=== PATIENT | male | born 1945 | race Caucasian/White ===

== ENCOUNTER 2017-03-16 08:09 | Emergency (ER) | payer MEDICARE, OTHER ==
[~2017-03-16] VITALS: Ht 172.7 cm; Wt 90.7 kg
[~2017-03-16 08:09] MED LIST: ACHD5005 PO; AMLO5TAB2 PO; ASPI-892 PO; ATOR20TA66 PO; CYCL10TA9 PO; ESOM20CA PO; METO50TA2 PO; NAPR-243 PO; NF-ESOM40C PO
--- OUTSIDE RECORDS SUMMARY | 2017-03-16 08:14 | XMS REPORT | Continuity of Care Document ---
Author Author [employer] Organization [facility] Address Unknown Phone Unavailable Care Team Providers Care Director Of Corporate Sales Name Role Phone [employer] Unavailable Unavailable Problems Medications Allergies, Adverse Reactions, Alerts Immunizations Results Vital Signs Encounters Location Location Details Encounter Type Encounter Number Reason For Visit Attending Provider ADM Date DC Date Status Source OUTPATIENT [id number] PRAKASH WILLINGHAM 07/04/2016 07/04/2016 Active [facility] OUTPATIENT [id number] PRAKASH WILLINGHAM 01/23/2017 01/23/2017 Active [facility] OUTPATIENT [id number] PRAKASH WILLINGHAM 02/26/2017 02/26/2017 Active [facility] O Active [facility] Procedures Plan of Care Social History Assessment and Plan Family History Value Date Source Advance Directives Order Name Results Value Date Source
--- OUTSIDE RECORDS SUMMARY | 2017-03-16 08:15 | XMS REPORT | Clinical Summary ---
Author Author [facility] Organization [facility] Address Unknown Phone Unavailable Care Team Providers Care Backend Tester Name Role Phone PCP Unavailable Source Comments Some departments are not documenting in the electronic medical record. If you do not see the information that you expected, contact Release of Information in the Health Information Management department at [phone] for further assistance in locating additional records.[facility] Allergies Active Allergy Reactions Severity Noted Date Comments Sulfa (Sulfonamide SHORTNESS OF BREATH Medium 11/04/2014 Antibiotics) Current Medications Prescription Sig. Disp. Refills Start End Date Status Date atorvastatin (LIPITOR) 20 Take 20 mg by mouth Active mg tablet daily. aspirin EC 81 mg tablet Take 81 mg by mouth. Take Active every other day esomeprazole DR(+) Take 20 mg by mouth as Active (NEXIUM) 20 mg capsule Needed. apixaban (ELIQUIS) 5 mg Take 1 Tab by mouth twice 60 Tab 11 07/21/19 Active tablet daily. If AF episode 17 lasting a few hours, take Eliquis and call our office lisinopril (PRINIVIL; Take 1.5 Tabs by mouth 135 Tab 3 10/13/19 Active ZESTRIL) 20 mg daily. 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 SVT (supraventricular tachycardia) (HCC) 10/14/2014 Overview: 10/03/2014 - 48 hr Holter showed occ PVC's and episodes of T inversion Palpitations 10/14/2014 Overview: Associated with chest discomfort r/t SVT - treated successfully with adenosine in ER S/P cardiac catheterization 10/13/2014 Overview: 50% mid LAD stenosis, LVEF 60% Hypokalemia 10/05/2014 Bradycardia 10/05/2014 Hypertension 11/04/2012 Encounters Date Type Specialty Care Team Description 03/15/2017 Telephone Cardiology Rocio Rodriguez, RN 03/07/2017 Telephone Cardiology Gretta Jason, CELIA Follow-up Phone Call (ILR events) 03/05/2017 Telephone Cardiology Zena Persaud Remote Monitoring Questions (LM for pt to send a remote transmission from [employer] monitor to see stored information.) 02/26/2017 Hospital Cardiology Bronson Snow MD Encounter 02/15/2017 Telephone Cardiology Gisella Espinal, Remote Monitoring RN Questions (pause and pablo alerts on ILR ) 02/01/2017 Telephone Cardiology Gisella Espinal, Remote Monitoring RN Questions (ILR events, request full transmission) 01/26/2017 Telephone Cardiology Gisella Espinal, Remote Monitoring RN Questions (pablo and pause alerts on ILR) 01/23/2017 Hospital Cardiology Bronson Snow MD Encounter 12/21/2016 Hospital Cardiology Bronson Snow MD Encounter from Last 3 Months Family History Medical History Relation Name Comments Hypertension Father Coronary Artery Disease Mother Hypertension Mother Relation Name Status Comments Father old age (Age 96) Mother heart disease (Age 94) Social History Tobacco Use Types Packs/Day Years Used Date Never Smoker Smokeless Tobacco: Never Used Alcohol Use Drinks/Week oz/Week Comments Yes Wine Occasionally Sex Assigned at Date Recorded Not on file Last Filed Vital Signs Vital Sign Reading Time Taken Blood Pressure 140/70 10/12/2016 11:13 AM CDT Pulse 54 10/12/2016 11:13 AM CDT Temperature 36.6 C (97.8 F) 11/25/2014 9:13 AM CDT Respiratory Rate - - Oxygen Saturation 97% 11/25/2014 9:13 AM CDT Inhaled Oxygen - - Concentration Weight 92.5 kg (204 lb) 10/12/2016 11:13 AM CDT Height 175.3 cm (5' 9") 10/12/2016 11:13 AM CDT Body Mass Index 30.13 10/12/2016 11:13 AM CDT Plan of Treatment Health Maintenance Due Date Last Done Comments HEPATITIS C SCREENING 1945 PHYSICAL (COMPREHENSIVE) 1952 EXAM PERTUSSIS VACCINE 1956 TETANUS VACCINE 1962 COLORECTAL CANCER 1995 SCREENING SHINGLES VACCINE 2005 PREVNAR/PNEUMOVAX (#1) 2010 INFLUENZA VACCINE 03/18/2017 Results * DEVICE EVALUATION - REMOTE ILR (01/26/2017 11:43 AM) Only the most recent of 2 results within the time period is included. Component Value Ref Range Device Implanted By Dr. Snow Generator Model # LNQ11 Generator Serial # [id number] Generator Implnat Date 03/22/16 Remote Monitor Serial# [id number] WENDY/EOL Indicator per transmitter Generator Net Lead Architect Medtronic Wireless Generator Yes Device Type ILR Device [place] Carelink Express Transmitter Compatible Permanent Comments r-waves 0.32-0.34 mV on date of implant EP Device Followed by Dr. Snow Name ILR Symptom Duration 4 7.5 mins each ILR Tachy Rate 158 ILR Tachy Duration 16 ILR Pause Duration 3 ILR Pablo Rate 30 ILR Pablo Duration 4 ILR AT Events Since Last n/a Interrogation ILR AT Lifetime Events as n/a of EP Device Followed By MAC ILR AF Rate AF only ILR AF Duration all episodes Known Diagnosed AFib Yes On Anticoagulation Yes Generator Location Left ILR Current Monitoring 01/23/2014 to 02/22/2017 Period ILR Date of Last Daily 02/11/17 Connection ILR Battery Status Ok ILR Symptom Events Since 0 Last Interrogation ILR Symptom Lifetime 17 Events as of ILR Tachy Events Since 1 Last Interrogation ILR Tachy Lifetime Events 2 as of ILR Pause Events Since 21 Last Interrogation ILR Pause Lifetime Events 69 as of ILR Pablo Events Since 61 Last Interrogation ILR Pablo Lifetime Events 503 as of ILR AF Events Since Last 0 Interrogation ILR AF Lifetime Events as 1 of ILR Percent Time in AT/AF 0.0% Events Since Last Interrogation ILR Percent Time in AT/AF 0.0% Lifetime of Events as of ILR Presenting ECG Strip 02/11/17 @ 0004 ILR Lifetime Events as of 02/11/17 Datetion Specimen Performing Laboratory OTHER OUTSIDE LAB Narrative [02/15/2017 10:07:19 AM - SHERRY ZEALYA] Event report received and reviewed, 2 new pause and 14 new pablo events # 591- Pablo- 02/10/17- SB 30's with ectopy # 589- Pablo- 02/09/17 @ 2348- SB 30's-40's with ectopy # 584- Pablo- 02/06/17 @ 0134- SB 30's-40's # 582- Pause- 02/05/17 @ 2333- SB 30's with 3 sec pause > SB 30's > 2.8 second pause > SB 30's # 574- 580- Pablo- 01/30/17-02/02/17- [phone]- longest episode 12 seconds- all events show SB 30's-40's Strips scanned for further review, will continue to monitor. Routed to Dr. Reid in EP lab for review/cosign. Ep nurse flagged for f/u if needed [01/31/2017 4:35:00 PM - GISELLA REDMAN]Reviewed Event Report. Report indicates one pause event and 13 pablo events occurred.Only two pablo events rec'd # 573 Pablo 01/30 @ 04:01 lasting 8 sec with Median and max V rate 31 bpm. Available 30 sec ECG shows SB rate 30's with 4 beats lower than 30 mid strip # 571 Pablo 01/27 @ 04:40 lasting 8 sec with median and max V rate 33 bpm. Shows similar to above.Strips scanned for review and signature. Mr. Bryant will need to send a remote transmission to see stored information. Routed to Dr. Corrales in EP lab for Dr. Snow for review and signature. [01/26/2017 11:47:10 AM - ZENA PERSAUD] Reviewed Summary Report, Full Report and Event Report. #558 Pause 01/21 @ 07:23 lasting 3 sec with a median V rate at 40 bpm shows SB between 33-38 bpm > 3.1 sec pause >one SB beat at <30 bpm > SB between 30-32 bpm. #[phone] Pablo 01/18-4 lasting between 8-9 sec with a min V rate between 30-31 bpm and median V rate between 30-36 bpm shows SB in the <30's-40's. #554 Pause 01/18 @ 20:14 lasting 3 sec with a median V rate at 37 bpm shows SB between 30-44 bpm > 3.4 sec pause > 3.1 sec pause > 3.6 sec pause > SB between <30-37 bpm. #551-553 Pablo 8/-8 lasting between 8-16 sec with a min V rate between <30-33 bpm and median V rate between 37-38 bpm shows SB in the <30's-40's. #543-550 Pause 01/14-8 lasting between 3-4 sec shows SB in the <30's-50's with true pauses. #550 - 3.4 sec pause #549 - 3.1 sec pause #548 - 3.9 sec pause #547 - 3.2 sec pause #546 - 3.4 sec pause #545 - 3.1 sec pause #544 - 4.2 sec pause #543 - 3.4 sec pause #542 Pablo 01/14 @ 20:42 lasting 11 sec with a min V rate at 11 bpm and median V rate at 38 bpm shows SB at <30's-40's. #541 Pause 01/14 @ 20:29 lasting 3 sec with a median V rate at 41 bpm shows SB <30's-40's with a 3.3 sec pause. #540 Tachy 01/14 @ 02:48 lasting 13 sec with a median/max V rate at 171 bpm shows SR in the 70's-80's with AT between 150's-180's > SR in the 60's-70's. #539 Pablo 01/13 @ 18:59 lasting 9 sec with a min V rate at 33 bpm and median V rate at 36 bpm shows SB between <30's-40's. #536-538 Pause 01/13 lasting 3 sec with a median V rate between 39-45 bpm shows SB between <30's-40's with true pauses. #538 - 3.3 sec pause #537 - 3.3 sec pause #536 - 3.1 sec pause #535 Pablo 01/12 @ 21:13 lasting 9 sec with a min/median V rate at <30 bpm shows SB <30's-40's. #534 Pause 01/12 @ 18:15 lasting 3 sec with a median V rate at 38 bpm shows SB <30's-40's with a 3.2 sec pause > SB between 30's-40's with a PAC. #510 and #[phone] Pablo 12/29-01/11 shows TEXT ONLY #[phone] Pause 12/31 shows TEXT ONLY Strips were scanned to review and I will route to Dr. Snow for review and co-sign. EP nurse was flagged to review and f/u. from Last 3 Months
--- OUTSIDE RECORDS SUMMARY | 2017-03-16 08:15 | XMS REPORT | Encounter Summary ---
Author Author [facility] Organization [facility] Address Unknown Phone Unavailable Care Team Providers Care Technology Professional Name Role Phone PCP Unavailable Encounter Details Date Type Department Care Team Description 01/23/2017 [facility] Cardiology Bronson Snow MD Encounter Remote Device Check [address] [facility] [phone] [address] [place] [address] [phone] Social History Tobacco Use Types Packs/Day Years Used Date Never Smoker Smokeless Tobacco: Never Used Alcohol Use Drinks/Week oz/Week Comments Yes Wine Occasionally Sex Assigned at Date Recorded Not on file as of this encounter Functional Status Functional Status Response Date of Assessment Does the patient have a hearing impairment: No 11/24/2014 as of this encounter Medications at Time of Discharge Medication Sig. Disp. Refills Start Date End Date apixaban (ELIQUIS) 5 mg Take 1 Tab by mouth twice 60 Tab 11 2016 tablet daily. If AF episode lasting a few hours, take Eliquis and call our office aspirin EC 81 mg tablet Take 81 mg by mouth. Take every other day atorvastatin (LIPITOR) 20 Take 20 mg by mouth mg tablet daily. esomeprazole DR(+) Take 20 mg by mouth as (NEXIUM) 20 mg capsule Needed. lisinopril (PRINIVIL; Take 1.5 Tabs by mouth 135 Tab 3 10/12/2016 ZESTRIL) 20 mg daily. tabletIndications: SVT (supraventricular tachycardia) (HCC), AVNRT (AV deyvi re-entry tachycardia) (HCC), Cardiac device in situ as of this encounter Plan of Treatment Not on fileas of this encounter Results * DEVICE EVALUATION - REMOTE ILR (01/26/2017 11:43 AM) Component Value Ref Range Device Implanted By Dr. Snow Generator Model # LNQ11 Generator Serial # [id number] Generator Implnat Date 03/22/16 Remote Monitor Serial# [id number] WENDY/EOL Indicator per transmitter Generator Telesales Consultant Medtronic Wireless Generator Yes Device Type ILR Device [place] [employer] Express Transmitter Compatible Permanent Comments r-waves [...] LAB Narrative [02/15/2017 10:07:19 AM - SHERRY ZELAYA] Event report received and reviewed, 2 new [...] SB 30's # 574- 580- Pablo- 01/30/17-02/02/17- [phone]- longest episode 12 seconds- all events show [...] review and signature. [01/26/2017 11:47:10 AM - ROSALINA PERSAUD] Reviewed Summary Report, Full Report and Event Report. #558 Pause 01/21 @ 07:23 lasting 3 sec with a median V rate at 40 bpm shows SB between 33-38 bpm > 3.1 sec pause >one SB beat at <30 bpm > SB between 30-32 bpm. #[phone] Pablo 01/18-01/19 lasting between 8-9 sec with a min [...] > SB between <30-37 bpm. #551-553 Pablo 01/17-01/18 lasting between 8-16 sec with a min V rate between <30-33 bpm and median V rate between 37-38 bpm shows SB in the <30's-40's. #543-550 Pause 01/14-01/17 lasting between 3-4 sec shows SB in [...] nurse was flagged to review and f/u. in this encounter Visit Diagnoses Diagnosis SVT (supraventricular tachycardia) (HCC) Other specified cardiac dysrhythmias Atrial flutter, unspecified type AVNRT (AV deyvi re-entry tachycardia) (HCC) Other specified cardiac dysrhythmias in this encounter
--- OUTSIDE RECORDS SUMMARY | 2017-03-16 08:15 | XMS REPORT | Encounter Summary ---
Author Author [facility] Organization [facility] Address Unknown Phone Unavailable Care Team Providers Care Range Aid Name Role Phone PCP Unavailable Encounter Details Date Type Department Care Team Description 03/15/2017 Telephone [facility] Cardiology Rocio Rodriguez, RN [address] [place] [address] Social History Tobacco Use Types Packs/Day Years Used Date Never Smoker Smokeless Tobacco: Never Used Alcohol Use Drinks/Week oz/Week Comments Yes Wine Occasionally Sex Assigned at Date Recorded Not on file as of this encounter Functional Status Functional Status Response Date of Assessment Does the patient have a hearing impairment: No 11/24/2014 as of this encounter Miscellaneous Notes * Telephone Encounter - Rocio Rodriguez RN - 03/15/2017 3:33 PM CDT rhythm strips review, all noted to be during sleep. will send to Dr Snow for review. Mr Bryant has hx of similar events in past all documented while sleeping. 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 #630 and #635 Pause 03/09 and 03/12 shows SB in the 30's with 3.2 and 3.4 sec pause. #626 Pause 03/08 @ 22:43 lasting 3 sec with a median V rate at 35 bpm shows SA with ectopy > 3.5 sec pause > SB <30's-41 bpm. Strips were scanned to review and f/u if needed. in this encounter Plan of Treatment Not on fileas of this encounter Visit Diagnoses Not on filein this encounter
--- OUTSIDE RECORDS SUMMARY | 2017-03-16 08:15 | XMS REPORT | Encounter Summary ---
Author Author [facility] Organization [facility] Address Unknown Phone Unavailable Care Team Providers Care Sales Associate Fishing Name Role Phone PCP Unavailable Encounter Details Date Type Department Care Team Description 02/26/2017 [facility] Cardiology Bronson Snow MD Encounter Remote Device Check [address] [facility] [phone] [address] [place] [address] [phone] Social History Tobacco Use Types Packs/Day Years [...] as of this encounter Plan of Treatment Name Priority Associated Diagnoses Date/Time DEVICE EVALUATION - REMOTE ILR Routine SVT (supraventricular 02/28/2017 2:26 PM CDT tachycardia) (HCC) Atrial flutter, unspecified type AVNRT (AV deyvi re-entry tachycardia) (HCC) as of this encounter Visit Diagnoses Diagnosis SVT (supraventricular tachycardia) (HCC) Other specified cardiac dysrhythmias Atrial flutter, unspecified type AVNRT (AV deyvi re-entry tachycardia) (HCC) Other specified cardiac dysrhythmias in this encounter
--- OUTSIDE RECORDS SUMMARY | 2017-03-16 08:15 | XMS REPORT | Encounter Summary ---
Author Author [facility] Organization [facility] Address Unknown Phone Unavailable Care Team Providers Care Social Media Content Specialist Name Role Phone PCP Unavailable Reason for Visit * Reason Comments Follow-up Phone Call ILR events Encounter Details Date Type Department Care Team Description 03/07/2017 Telephone [facility] Cardiology Gretta Jason RN Follow- up Phone Call (ILR [address] [place] events) [address] [place], [place] [id number] Social History Tobacco Use Types Packs/Day Years Used Date Never Smoker Smokeless Tobacco: Never Used Alcohol Use Drinks/Week oz/Week Comments Yes Wine Occasionally Sex Assigned at Date Recorded Not on file as of this encounter Functional Status Functional Status Response Date of Assessment Does the patient have a hearing impairment: No 11/24/2014 as of this encounter Miscellaneous Notes * Telephone Encounter - Gretta Jason RN - 03/07/2017 11:21 AM CDT Called patient to discuss events. Left VM to CB. 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 #617 Pablo 03/04 @ 23:30 lasting 9 sec with a min V rate at 37 bpm and median V rate at 39 bpm shows 37-44 bpm > four beats at SB <30's > SB with V rates between 32-42 bpm. Strips were scanned to review and f/u if needed. in this encounter Plan of Treatment Not on fileas of this encounter Visit Diagnoses Not on filein this encounter
--- OUTSIDE RECORDS SUMMARY | 2017-03-16 08:15 | XMS REPORT | Encounter Summary ---
Author Author [facility] Organization [facility] Address Unknown Phone Unavailable Care Team Providers Care Adz Worker Name Role Phone PCP Unavailable Reason for Visit * Reason Comments Remote Monitoring LM for pt to send a remote transmission from [employer] monitor to see stored Questions information. Encounter Details Date Type Department Care Team Description 03/05/2017 Telephone [facility] Cardiology Zena Kilpatrick Remote Monitoring [address] Questions (LM for pt to [address] [place] [address] transmission from [employer] [phone] monitor to see stored information.) Social History Tobacco Use Types Packs/Day Years Used Date Never Smoker Smokeless Tobacco: Never Used Alcohol Use Drinks/Week oz/Week Comments Yes Wine Occasionally Sex Assigned at Date Recorded Not on file as of this encounter Functional Status Functional Status Response Date of Assessment Does the patient have a hearing impairment: No 11/24/2014 as of this encounter Plan of Treatment Not on fileas of this encounter Visit Diagnoses Not on filein this encounter
--- OUTSIDE RECORDS SUMMARY | 2017-03-16 08:15 | XMS REPORT | Encounter Summary ---
Author Author [facility] Organization [facility] Address Unknown Phone Unavailable Care Team Providers Care Speech Clinician Name Role Phone PCP Unavailable Reason for Visit * Reason Comments Remote Monitoring ILR events, request full transmission Questions Encounter Details Date Type Department Care Team Description 02/01/2017 Telephone [facility] Cardiology Ana Espinal, Remote Monitoring [address] [address] RN Questions (ILR events, [address] [place] [address] transmission) [phone] Social History Tobacco Use Types Packs/Day Years Used Date Never Smoker Smokeless Tobacco: Never Used Alcohol Use Drinks/Week oz/Week Comments Yes Wine Occasionally Sex Assigned at Date Recorded Not on file as of this encounter Functional Status Functional Status Response Date of Assessment Does the patient have a hearing impairment: No 11/24/2014 as of this encounter Miscellaneous Notes * Telephone Encounter - Ana Espinal RN - 02/01/2017 11:30 AM CDT rec'd Event Report. Report indicates one pause event and 13 yanet events occurred. Only two yanet events rec'd Spoke with , explained we only rec'd 2 events and asked for a full transmission. She states she would tell her . in this encounter Plan of Treatment Not on fileas of this encounter Visit Diagnoses Not on filein this encounter
--- OUTSIDE RECORDS SUMMARY | 2017-03-16 08:15 | XMS REPORT | Encounter Summary ---
Author Author [facility] Organization [facility] Address Unknown Phone Unavailable Care Team Providers Care Support Assistant Name Role Phone PCP Unavailable Reason for Visit * Reason Comments Remote Monitoring pause and pablo alerts on ILR Questions Encounter Details Date Type Department Care Team Description 02/15/2017 Telephone [facility] Cardiology Ana Espinal, Remote Monitoring [address] [address] RN Questions (pause and [address] pablo alerts on ILR ) [place] [address] Social History Tobacco Use Types Packs/Day Years Used Date Never Smoker Smokeless Tobacco: Never Used Alcohol Use Drinks/Week oz/Week Comments Yes Wine Occasionally Sex Assigned at Date Recorded Not on file as of this encounter Functional Status Functional Status Response Date of Assessment Does the patient have a hearing impairment: No 11/24/2014 as of this encounter Miscellaneous Notes * Telephone Encounter - Ana Espinal, RN - 02/15/2017 10:56 AM CDT # 591- Pablo- 02/10/17- SB 30's with ectopy # 589- Pablo- 02/09/17 @ 2348- SB 30's-40's with ectopy # 584- Pablo- 02/06/17 @ 0134- SB 30's-40's # 582- Pause- 02/05/17 @ 2333- SB 30's with 3 sec pause > SB 30's > 2.8 second pause > SB 30's Per MPE, if during sleep and similar to others, no need to call On 01/26 - some of previous events are 6p to 9p Sent messages to Dr. Snow and his RN in clinic with him today to review . Send message to RIP, RN, BEAE's RN re: did MPE have any recommendations? in this encounter Plan of Treatment Not on fileas of this encounter Visit Diagnoses Not on filein this encounter
--- OUTSIDE RECORDS SUMMARY | 2017-03-16 08:15 | XMS REPORT | Encounter Summary ---
Author Author [facility] Organization [facility] Address Unknown Phone Unavailable Care Team Providers Care Coding Support Specialist Name Role Phone PCP Unavailable Reason for Visit * Reason Comments Remote Monitoring yanet and pause alerts on ILR Questions Encounter Details Date Type Department Care Team Description 01/26/2017 Telephone [facility] Cardiology Ana Espinal, Remote Monitoring [address] RN Questions (yanet and [address] pause alerts on ILR) [place] [address] Social History Tobacco Use Types [...] Telephone Encounter - Rocio Rodriguez RN - 02/15/2017 6:[address] Snow review, advised - continue to monitor * Telephone Encounter - Ana Espinal RN - 01/26/2017 1:00 PM CDT ----- Message from Zena Kilaptrick sent at 01/26/2017 12:51 PM CDT ----- Regarding: MPE LINQ pt with numerous yanet and true pause events and one AT event Between 12/31-01/21 pt has experienced numerous yanet and pauses events with one AT event which are true events. Duration of pause events are between 3.1-4.2 sec. Strips were scanned to review and f/u. Pt and get real angry with remote question calls. Per MPE, if during sleep and similar to others, no need to call. BUT some of these events are 6p to 9p Sent messages to Dr. Snow and his RN in clinic with him today to review in this encounter Plan of Treatment Not on fileas of this encounter Visit Diagnoses Not on filein this encounter
--- OUTSIDE RECORDS SUMMARY | 2017-03-16 08:15 | XMS REPORT | Encounter Summary ---
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 Snow Generator Crew Trainer Other Generator Model # [id number] Generator Serial # [id number] Generator Implnat Date 03/22/16 Remote Monitor Serial# [id number] Device Freedom Transmitter WENDY/EOL Indicator per transmitter Generator Crew Trainer Medtronic Generator Investigational Wireless Generator Yes Device Type ILR Device Freedom Carelink Express Transmitter Compatible Permanent Comments r-waves 0.32-0.34 mV on date of implant Permanent Comments 2 ILR History of Afib ILR Date AF Diagnosed EP Device Followed by Dr. Snow Name ILR Symptom Duration 4 7.5 mins each ILR Tachy Rate 158 ILR Tachy Duration 16 ILR Pause Duration 3 ILR Pablo Rate 30 ILR Pablo Duration 4 ILR AT Events Since Last n/a Interrogation ILR AT Lifetime Events as n/a of ILR AT Rate ILR AT Duration ILR Percent Time in AT/AF Duration Research Comments Research Comments 2 EP Device Followed By MAC ILR AF Rate AF only ILR AF Duration all episodes On AntiCoag Date Known Diagnosed AFib Yes On Anticoagulation Yes ILR Current Monitoring 12/22/2016 to 01/23/2017 Period ILR Date of Last Daily 12/23/2016 Connection ILR Lifetime Events as of 12/23/2016 Datetion ILR Symptom Events Since 0 Last Interrogation ILR Symptom Lifetime 17 Events as of ILR Tachy Events Since 0 Last Interrogation ILR Tachy Lifetime Events 1 as of ILR Pause Events Since 4 Last Interrogation ILR Pause Lifetime Events 48 as of ILR Pablo Events Since 15 Last Interrogation ILR Pablo Lifetime Events 442 as of ILR AF Events Since Last 0 Interrogation ILR AF Lifetime Events as 1 of ILR Percent Time in AT/AF 0.0% Events Since Last Interrogation ILR Percent Time in AT/AF 0.0% Lifetime of Events as of ILR Battery Status OK ILR Presenting ECG Strip 12/23/2016 @ 00:04:50 shows SB in the 40's Generator Location Other Generator Location Left Freedom Transmitter Check Specimen Performing Laboratory OTHER OUTSIDE LAB Narrative [12/27/2016 11:40:06 AM - ROSALINA PERSAUD] Reviewed Summary Report and Event Report. Report indicates four pause events and 15 pablo events. #507 Pablo 12/22 @ 01:15 lasting 11 sec with a min V rate at 32 bpm and median V rate at 39 bpm shows SB between 30's-40's > five SB at <30 bpm > SB in the 30's. #506 Pause 76 @ 23:22 lasting 3 sec with a median V rate at 42 bpm shows SB <30's-41 bpm > 3.1 sec pause > four beats at <30 bpm > SB between 36-45 bpm . True pause noted. #504 Pablo 7 @ 02:07 lasting 11 sec with a min V rate at 30 bpm and median V rate at 31 bpm shows SB in the 30's-40's > five beats at <30 bpm > SB in the 30's-40's. #502 Pause 12/18 @ 04:49 lasting 3 sec with a median V rate at 39 bpm shows SB at <30's-30 bpm > 3.4 sec pause > SB between <30-40 bpm. True pause noted. Strips were scanned to review and I will route to Dr. Snow for review and co-sign. EP nurse was flagged to review and f/u if needed. LM for pt to send a remote transmission to see stored information. in this encounter Visit Diagnoses Diagnosis SVT (supraventricular tachycardia) (HCC) Other specified cardiac dysrhythmias Atrial flutter, unspecified type AVNRT (AV deyvi re-entry tachycardia) (HCC) Other specified cardiac dysrhythmias in this encounter
--- OUTSIDE RECORDS SUMMARY | 2017-03-16 08:16 | XMS REPORT | Continuity of Care Document ---
Author Author [facility] Organization [facility] Address Unknown Phone Unavailable Allergies Active Description Code Type Severity Reaction Onset Reported/Identified Relationship to Patient Clinical Status Yes Sulfa (Sulfonamide Antibiotics) [id number] Drug Allergy Unknown N/A 10/13/2014 Medications Problems Date Dx Coded Attending Type Code Diagnosis Diagnosed By 11/07/2011 Ot 924.01 11/07/2011 Ot 959.6 11/07/2011 Ot E000.8 11/07/2011 Ot E849.0 11/07/2011 Ot E906.8 10/02/2014 ZEENAT CULVER DO Ot 530.81 10/02/2014 ZEENAT CULVER DO Ot 785.1 10/02/2014 ZEENAT CULVER DO Ot 786.05 10/02/2014 ZEENAT CULVER DO Ot V58.69 10/02/2014 Ot 785.6 10/02/2014 Ot 793.11 10/02/2014 Ot 793.11 10/13/2014 PHYLLIS HARO [facility], [facility] FACP CCDS Ot 401.9 10/13/2014 PHYLLIS HARO [facility], ALI FACP CCDS Ot 414.01 10/13/2014 PHYLLIS HARO [facility], ALI FACP CCDS Ot 427.69 10/13/2014 PHYLLIS HARO [facility], ALI FACP CCDS Ot 786.59 10/13/2014 PHYLLIS HARO [facility], ALI FACP CCDS Ot V58.69 10/14/2014 ZEENAT CULVER DO Ot 427.89 10/14/2014 ZEENAT CULVER DO Ot 785.0 12/31/2014 ZEENAT CULVER DO Ot 785.1 01/15/2015 ELLI PATEL MD Ot 427.31 01/15/2015 ELLI PATEL MD Ot 785.0 11/11/2015 KAROLINA BLANCHARD DO Ot G47.33 OBSTRUCTIVE SLEEP APNEA (ADULT) (PEDIATR 11/12/2015 KAROLINA BLANCHARD DO Ot G47.33 OBSTRUCTIVE SLEEP APNEA (ADULT) (PEDIATR 11/21/2015 KAROLINA BLANCHARD DO Ot G47.33 OBSTRUCTIVE SLEEP APNEA (ADULT) (PEDIATR Procedures Results Encounters ACCT No. Visit Date/Time Discharge Status Pt. Type Provider Facility Loc./Unit Complaint [id number] 06/02/2014 08:36:14 06/02/2014 23: 59:59 CLS Outpatient Markus Morales [id number] 11/11/2015 20:02:00 2015 06:45:00 DIS Outpatient KAROLINA BLANCHARD DO [facility] SLEEP [id number] 01/15/2015 08:28:00 2014 11:07:00 DIS Emergency ELLI PATEL MD [facility] ER [id number] 01/01/2015 12:00:00 2014 23:59:59 CLS Preadmit ZEENAT CULVER DO [facility] CARD [id number] 10/02/2014 11:45:00 2014 00:01:00 DIS Outpatient ZEENAT CULVER DO [facility] CARD [id number] 10/14/2014 18:22:00 2014 20:02:00 DIS Emergency ZEENAT CULVER DO [facility] ER [id number] 10/13/2014 09:15:00 2014 17:20:00 DIS Outpatient PHYLLIS HARO FACCCANDY FACP CCDS [facility] CATH [id number] 10/02/2014 09:32:00 2014 11:28:00 DIS Emergency ZEENAT CULVER DO [facility] ER [id number] 08/28/2012 09:50:00 Document Registration [id number] 03/14/2012 08:47:00 Document Registration [id number] 11/06/2011 23:45:00 Document Registration
[2017-03-16] MEDS ORDERED: meTOprolol 5 MG/5 ML (LOPRESSOR) VIAL IV ONE (08:30)
[2017-03-16 08:32] LABS: BASOPHILS % (AUTO) 0 % (0-10); EOSINOPHILS # (AUTO) 0.1 10^3/uL (0.0-0.3); EOSINOPHILS % (AUTO) 2 % (0-10); LYMPHOCYTES # (AUTO) 1.7 X 10^3 (1.0-4.0); LYMPHOCYTES % (AUTO) 28 % (12-44); MEAN CORPUSCULAR HEMOGLOBIN 30 PG (25-34); MEAN CORPUSCULAR HGB CONC 34 G/DL (32-36); MEAN CORPUSCULAR VOLUME 89 FL (80-99); MEAN PLATELET VOLUME 10.4 FL (7.4-10.4); MONOCYTES # (AUTO) 0.5 X 10^3 (0.0-1.0); MONOCYTES % (AUTO) 8 % (0-12); NEUTROPHILS # (AUTO) 3.9 X 10^3 (1.8-7.8); NEUTROPHILS % (AUTO) 62 % (42-75); PLATELET COUNT 184 10^3/uL (130-400); RED BLOOD COUNT 5.16 10^6/uL (4.35-5.85); RED CELL DISTRIBUTION WIDTH 13.7 % (10.0-14.5); WHITE BLOOD COUNT 6.2 10^3/uL (4.3-11.0)
--- NOTE | 2017-03-16 08:45 | Diagnostic Imaging Report ---
INDICATION: Left arm weakness. PA chest obtained at 8:28 a.m. and compared with 01/15/15. FINDINGS: Heart and mediastinal silhouette are normal in appearance. The lungs are clear. There is no pneumothorax or pleural fluid. IMPRESSION: No acute process in the chest. Dictated by: Dictated on workstation # [id number]
--- NOTE | 2017-03-16 08:51 | ED Cardiac General ---
History of Present Illness General Chief Complaint: Cardiac/General Problems Stated Complaint: HEART PROBLEMS Nursing Triage Note: PT STATES HIS HEART HAS BEEN RACING SINCE 0530 THIS AM. AKOSUA CHEST PAIN. AKOSUA SOA. STATES HE HAS A HX OF SVT AND HAS HAD AN ABLATION WITH DR WILLINGHAM. STATES THAT HE TOOK ELIQUIS 5MG PO THIS AM ONCE HIS HEART STARTED RACING PER DR SYKES PRN ORDERS. Source: patient Exam Limitations: no limitations History of Present Illness Time seen by provider: 08:46 Initial Comments The patient is a 71-year-old white male who presents with complaint of dyspnea and palpitations. He reports that He has had SVT beginning about 2-1/2 years ago. About 2 years ago he had an ablation performed at [facility] by Dr. WILLINGHAM. He states that he has done well since that time with minor sense of palpitations on occasion. He reports that today he and his had spent the last 3 days cleaning out a shed. This involved being on his feet for about 8 hours per day. He was unable to sleep last night and at about 05 30 began to have the sense of pounding in his chest. There is been no chest pain. Timing/Duration: 1-3 hours Prior CP/Workup: other (previous electrophysiology consult and ablation) Allergies and Home Medications Allergies Coded Allergies: Sulfa (Sulfonamide Antibiotics) (Unverified Allergy, Unknown, 10/13/14) Home Medications Aspirin 81 Mg Tabec, 81 MG PO DAILY, (Reported) Atorvastatin 20 Mg Tablet, 20 MG PO DAILY, #30 Ref 5 Prescribed by: CANDY FERGUSON on 10/13/14 1315 Esomeprazole Mag Trihydrate 20 Mg Capsule.dr, 20 MG PO HS, (Reported) Lisinopril 10 Mg Tablet, 10 MG PO DAILY, (Reported) TAKES IN ADDITION TO 20MG TO EQUAL 30MG Lisinopril 20 Mg Tablet, 20 MG PO DAILY, (Reported) TAKES IN ADDITION TO 10MG TAB TO EQUAL 30MG Review of Systems Constitutional: see HPI EENTM: No Symptoms Reported Respiratory: No Symptoms Reported Cardiovascular: Irregular Heart Rate, Palpitations Gastrointestinal: No Symptoms Reported Genitourinary: No Symptoms Reported Musculoskeletal: no symptoms reported Skin: no symptoms reported Psychiatric/Neurological: No Symptoms Reported Endocrine: No Symptoms Reported Hematologic/Lymphatic: No Symptoms Reported Past Ixvfygm-Cszdvr-Pltgdz Hx Patient Social History Alcohol Use: Denies Use Recreational Drug Use: No Smoking Status: Never a Smoker Recent Foreign Travel: No Contact w/Someone Who Travel: No Recent Infectious Disease Expo: No Recent Hopitalizations: No Physical Abuse: No Sexual Abuse: No Mistreated: No Fear: No Seasonal Allergies Seasonal Allergies: No Surgeries History of Surgeries: No (ABLATION) Surgeries: Tonsillectomy Respiratory History of Respiratory Disorde: No Cardiovascular History of Cardiac Disorders: Yes (CARDIAC ABLATION, SVT) Cardiac Disorders: Hypertension Neurological History of Neurological Disord: No Reproductive System Hx Reproductive Disorders: No Genitourinary History of Genitourinary Disor: No Gastrointestinal History of Gastrointestinal Di: Yes Gastrointestinal Disorders: Gastroesophageal Reflux, Diverticulosis Musculoskeletal History of Musculoskeletal Dis: No Endocrine History of Endocrine Disorders: No Cancer History of Cancer: No Psychosocial History of Psychiatric Problem: No Suicide Risk Score: 0 Integumentary History of Skin or Integumenta: No Blood Transfusions History of Blood Disorders: No Physical Exam Vital Signs Vital Sign - Last 12Hours 03/16/17 08:32 Temp 97.4 Pulse 147 Resp 18 B/P (MAP) 137/84 Capillary Refill : Less Than 3 Seconds General Appearance: Anxious HEENT: PERRL/EOMI, TMs Normal, Normal ENT Inspection, Pharynx Normal Neck: Normal Inspection Respiratory: Chest Non Tender, Lungs Clear, Normal Breath Sounds, No Accessory Muscle Use, No Respiratory Distress Cardiovascular: No Edema, No Gallop, No JVD, No Murmur, Normal Peripheral Pulses, Irregularly Irregular, Tachycardia Gastrointestinal: Normal Bowel Sounds, No Organomegaly, No Pulsatile Mass, Non Tender Extremity: Normal Capillary Refill, Normal Inspection, Normal Range of Motion, Non Tender, No Calf Tenderness, No Pedal Edema Neurologic/Psychiatric: Alert, Oriented x3, No Motor/Sensory Deficits, Normal Mood/Affect Skin: Normal Color, Warm/Dry Progress/Results/Core Measures Results/Orders Lab Results Laboratory Tests Test 03/16/17 08:26 03/16/17 08:50 Range/Units White Blood Count 6.2 4.3-11.0 10^3/uL Red Blood Count 5.16 4.35-5.85 10^6/uL Hemoglobin 15.6 13.3-17.7 G/DL Hematocrit 46 40-54 % Mean Corpuscular Volume 89 80-99 FL Mean Corpuscular Hemoglobin 30 25-34 PG Mean Corpuscular Hemoglobin Concent 34 32-36 G/DL Red Cell Distribution Width 13.7 10.0-14.5 % Platelet Count 184 130-400 10^3/uL Mean Platelet Volume 10.4 7.4-10.4 FL Neutrophils (%) (Auto) 62 42-75 % Lymphocytes (%) (Auto) 28 12-44 % Monocytes (%) (Auto) 8 0-12 % Eosinophils (%) (Auto) 2 0-10 % Basophils (%) (Auto) 0 0-10 % Neutrophils # (Auto) 3.9 1.8-7.8 X 10^3 Lymphocytes # (Auto) 1.7 1.0-4.0 X 10^3 Monocytes # (Auto) 0.5 0.0-1.0 X 10^3 Eosinophils # (Auto) 0.1 0.0-0.3 10^3/uL Basophils # (Auto) 0.0 0.0-0.1 10^3/uL Sodium Level 142 135-145 MMOL/L Potassium Level 4.0 3.6-5.0 MMOL/L Chloride Level 113 H 98-107 MMOL/L Carbon Dioxide Level 21 21-32 MMOL/L Anion Gap 8 5-14 MMOL/L Blood Urea Nitrogen 21 H 7-18 MG/DL Creatinine 1.26 0.60-1.30 MG/DL Estimat Glomerular Filtration Rate 56 BUN/Creatinine Ratio 17 Glucose Level 98 70-105 MG/DL Calcium Level 9.4 8.5-10.1 MG/DL Total Bilirubin 0.8 0.1-1.0 MG/DL Aspartate Amino Transf (AST/SGOT) 20 5-34 U/L Alanine Aminotransferase (ALT/SGPT) 21 0-55 U/L Alkaline Phosphatase 71 40-136 U/L Troponin I < 0.30 <0.30 NG/ML Total Protein 7.4 6.4-8.2 GM/DL Albumin 4.1 3.2-4.5 GM/DL Urine Color YELLOW Urine Clarity CLEAR Urine pH 8 5-9 Urine Specific [place] 1.010 L 1.016-1.022 Urine Protein NEGATIVE NEGATIVE Urine Glucose (UA) NEGATIVE NEGATIVE Urine Ketones NEGATIVE NEGATIVE Urine Nitrite NEGATIVE NEGATIVE Urine Bilirubin NEGATIVE NEGATIVE Urine Urobilinogen NORMAL NORMAL MG/DL Urine Leukocyte Esterase NEGATIVE NEGATIVE Urine RBC (Auto) 2+ H NEGATIVE Urine RBC 0-2 /HPF Urine WBC NONE /HPF Urine Squamous Epithelial Cells RARE /HPF Urine Crystals NONE /LPF Urine Bacteria NEGATIVE /HPF Urine Casts NONE /LPF Urine Mucus NEGATIVE /LPF Urine Culture Indicated NO My Orders Orders - ELLI PATEL MD Ekg Tracing (03/16/17 08:12) Cbc With Automated Diff (03/16/17 08:12) Comprehensive Metabolic Panel (03/16/17 08:12) Troponin I (03/16/17 08:12) Ua Culture If Indicated (03/16/17 08:12) Chest 1 View, Ap/Pa Only (03/16/17 08:12) Metoprolol Tartrate Injection (Lopressor (03/16/17 08:30) Medications Given in ED Current Medications Medications Dose Ordered Sig/Tram Route Start Time Stop Time Status Last Admin Dose Admin Metoprolol Tartrate 5 mg ONCE ONCE IV 03/16/17 08:30 03/16/17 08:31 DC 03/16/17 08:31 5 MG Vital Signs/I&O Vital Sign - Last 12Hours 03/16/17 08:32 Temp 97.4 Pulse 147 Resp 18 B/P (MAP) 137/84 Blood Pressure Mean: 101 Departure Communication (Admissions) Progress Notes Initial cardiogram showed atrial fibrillation with a rate of 135. The patient was given 5 mg of metoprolol IV. At 0848 he converted to a sinus rhythm. The patient was discussed with CANDY Jarrell his usual consulting psychologist. The cardiogram and rhythm strips were faxed to his office. 1025 CANDY Jarrell returned call after reviewing the tracings. He agrees that this appears to be atrial fibrillation and would therefore want the patient to take Toprol 50 mg daily and start on Eliquis 5 mg twice a day. The patient has taken these in the past and has the Eliquis at home. Impression Impression: Primary Impression: atrial fibrillation with rapid ventricular response Disposition: 01 HOME, SELF-CARE Condition: Improved Departure-Patient Inst. Referrals: THAO HOWE MD (PCP/Family) Primary Care Physician Patient Instructions: Atrial Fibrillation (DC) Add. Discharge Instructions: All discharge instructions reviewed with patient and/or family. Voiced understanding. Toprol 50 mg daily Eliquis 5 mg twice daily Appointment with CANDY Jarrell next week. Call for appointment. Stop aspirin. Scripts Apixaban (Eliquis) 5 Mg Tablet 5 MG PO BID, #60 TAB Prov: ELLI PATEL MD 03/16/17 Metoprolol Succinate (Toprol Xl) 50 Mg Tab.er.24h 50 MG PO DAILY, #30 TAB Prov: ELLI PATEL MD 03/16/17 ELLI PATEL MD Mar 16, 2017 08:51
[2017-03-16 08:52] LABS: ALANINE AMINOTRANSFERASE 21 U/L (0-55); ALBUMIN 4.1 GM/DL (3.2-4.5); ANION GAP 8 MMOL/L (5-14); ASPARTATE AMINO TRANSFERASE 20 U/L (5-34); BILIRUBIN,TOTAL 0.8 MG/DL (0.1-1.0); BLOOD UREA NITROGEN 21 MG/DL (7-18); BUN/CREATININE RATIO 17; CALCIUM 9.4 MG/DL (8.5-10.1); CARBON DIOXIDE 21 MMOL/L (21-32); CHLORIDE 113 MMOL/L (98-107); CREATININE SERUM 1.26 MG/DL (0.60-1.30); GFR ESTIMATED 56; GLUCOSE 98 MG/DL (70-105); SODIUM 142 MMOL/L (135-145); TOTAL PROTEIN 7.4 GM/DL (6.4-8.2)
[2017-03-16] MEDS ORDERED: LISI10TA2 PO (08:55)
[2017-03-16] MEDS ORDERED: LISI-552 PO (08:55)
[2017-03-16 08:57] LABS: TROPONIN I < 0.30 NG/ML (<0.30)
[2017-03-16 09:07] LABS: BILIRUBIN,URINE NEGATIVE (NEGATIVE); KETONES,URINE NEGATIVE (NEGATIVE); LEUKOCYTE ESTERASE ,URINE NEGATIVE (NEGATIVE); NITRITE,URINE NEGATIVE (NEGATIVE); PH,URINE 8 (5-9); PROTEIN,URINE NEGATIVE (NEGATIVE); SQUAMOUS EPITHELIAL CELL,UR RARE /HPF; UROBILINOGEN,URINE NORMAL (NORMAL)
[2017-03-16] MEDS ORDERED: METO-352 PO (10:29)
[2017-03-16] MEDS ORDERED: APIX5TAB PO (10:29)
[2017-03-16 10:30] VITALS: BP 124/80
[2017-03-16] MEDS ORDERED: meTOproloL SUCCINATE 50 MG (TOPROL XL) TAB PO SCH (10:45)
== END 2017-03-16 10:42 | disposition home or self-care (01) ==
LOC: EDUNIT# 08:09 → ER 08:10
DX: I48.0 Paroxysmal atrial fibrillation (principal); I10 Essential (primary) hypertension; K21.9 Gastro-esophageal reflux disease without esophagitis; Z87.19 Personal history of other diseases of the digestive system; Z79.82 Long term (current) use of aspirin; Z90.89 Acquired absence of other organs
CPT/HCPCS: 36415; 71010; 80053; 81000; 84484; 85025; 93005; 96374

== ENCOUNTER → 2017-03-23 | Outpatient (CLI) | payer MEDICARE, OTHER ==
[~2017-03-23] MED LIST changes: +APIX5TAB PO; +LISI-552 PO; +LISI10TA2 PO; +METO-352 PO
== END ==
LOC: CARD 12:46
PROVIDERS: ATTEND Internal Medicine Cardiovascular Disease
DX: I48.0 Paroxysmal atrial fibrillation (principal); G47.33 Obstructive sleep apnea (adult) (pediatric); I10 Essential (primary) hypertension; E78.4 Other hyperlipidemia; I47.1 Supraventricular tachycardia; R00.2 Palpitations; I25.10 Atherosclerotic heart disease of native coronary artery without angina pectoris
CPT/HCPCS: 93306

== ENCOUNTER → 2017-03-27 | Outpatient (CLI) | payer MEDICARE, OTHER ==
[~2017-03-27] VITALS: Ht 175.3 cm; Wt 91.6 kg
[~2017-03-27] MED LIST changes: +REGADENOSON 0.4 MG/5 ML SYR (LEXISCAN) IV ONE
[2017-03-27 11:10] LABS: BASOPHILS % (AUTO) 0 % (0-10); EOSINOPHILS # (AUTO) 0.2 10^3/uL (0.0-0.3); EOSINOPHILS % (AUTO) 3 % (0-10); LYMPHOCYTES # (AUTO) 2.3 X 10^3 (1.0-4.0); LYMPHOCYTES % (AUTO) 37 % (12-44); MEAN CORPUSCULAR HEMOGLOBIN 31 PG (25-34); MEAN CORPUSCULAR HGB CONC 34 G/DL (32-36); MEAN CORPUSCULAR VOLUME 91 FL (80-99); MEAN PLATELET VOLUME 10.4 FL (7.4-10.4); MONOCYTES # (AUTO) 0.4 X 10^3 (0.0-1.0); MONOCYTES % (AUTO) 7 % (0-12); NEUTROPHILS # (AUTO) 3.2 X 10^3 (1.8-7.8); NEUTROPHILS % (AUTO) 52 % (42-75); PLATELET COUNT 172 10^3/uL (130-400); RED BLOOD COUNT 4.63 10^6/uL (4.35-5.85); RED CELL DISTRIBUTION WIDTH 13.6 % (10.0-14.5); WHITE BLOOD COUNT 6.2 10^3/uL (4.3-11.0)
[2017-03-27] MEDS: CATHETER FLUSH 10 ML SYR IV PRN ×2 (11:10→11:49)
[2017-03-27 11:38] LABS: ALBUMIN 3.8 GM/DL (3.2-4.5); BILIRUBIN,TOTAL 0.9 MG/DL (0.1-1.0); CALCIUM 9.2 MG/DL (8.5-10.1); CREATININE SERUM 1.28 MG/DL (0.60-1.30); POTASSIUM 3.8 MMOL/L (3.6-5.0); TOTAL PROTEIN 6.9 GM/DL (6.4-8.2)
[2017-03-27 11:47] VITALS: BP 125/61
[2017-03-27 11:47] LABS: ERYTHROCYTE SEDIMENTATION RATE 1 MM/HR (0-30)
[2017-03-27 12:00] LABS: THYROID STIMULATING HORMONE 0.49 UIU/ML (0.35-4.94)
== END ==
LOC: CARD 10:45
PROVIDERS: ATTEND Internal Medicine Cardiovascular Disease
DX: E78.4 Other hyperlipidemia (principal); I48.0 Paroxysmal atrial fibrillation; G47.33 Obstructive sleep apnea (adult) (pediatric); I10 Essential (primary) hypertension; I47.1 Supraventricular tachycardia; R00.2 Palpitations; I25.10 Atherosclerotic heart disease of native coronary artery without angina pectoris
CPT/HCPCS: 36415; 78452; 80053; 80061; 84443; 85025; 85652; 93017

== ENCOUNTER → 2019-06-13 | Outpatient (CLI) | payer MEDICARE, OTHER ==
[~2019-06-13] MED LIST changes: -REGADENOSON 0.4 MG/5 ML SYR (LEXISCAN) IV ONE
--- NOTE | 2019-06-13 14:06 | Diagnostic Imaging Report ---
PROCEDURE: CT abdomen and pelvis without contrast. TECHNIQUE: Multiple contiguous axial images were obtained through the abdomen and pelvis without the use of intravenous contrast. Auto Exposure Controls were utilized during the CT exam to meet ALARA standards for radiation dose reduction. All CT scans use one or more of the following dose optimizing techniques: automated exposure control, MA and/or KvP adjustment based on patient size and exam type or iterative reconstruction. INDICATION: Microhematuria. COMPARISON: Correlation is made with prior CT from 10/27/2009. FINDINGS: The lung bases are clear. The liver and gallbladder are unremarkable. No biliary ductal dilatation is seen. The pancreas and spleen are unremarkable. No adrenal mass is identified. Multiple parapelvic cysts involving the left kidney are noted. No calculi or hydronephrosis is seen. There is a cortical low density involving the lower pole of right kidney, too small to characterize but most likely a cyst. Aorta is non-aneurysmal. Hazy increased density to central mesentery with small lymph nodes is similar to prior exam. The small and large bowel loops are normal caliber. There is no obstruction. Diverticulosis of the sigmoid is seen but no evidence of acute diverticulitis. No bladder calculi are seen. No significant wall thickening or mass is detected. There is mild enlargement of the prostate gland which contains central calcifications. No free fluid or fluid collection is identified. Small sclerotic focus in the right sacral ala is noted. IMPRESSION: 1. No evidence of urinary tract calculi or obstruction. No definite urinary tract mass is seen apart from left parapelvic cysts and probable right small cortical renal cyst. 2. Uncomplicated diverticulosis. 3. Mild prostatomegaly. Dictated by: Dictated on workstation # [id number]
== END ==
LOC: RAD 13:34
PROVIDERS: ATTEND Urology
DX: N28.1 Cyst of kidney, acquired (principal); K57.30 Diverticulosis of large intestine without perforation or abscess without bleeding; N40.0 Benign prostatic hyperplasia without lower urinary tract symptoms; R31.29 Other microscopic hematuria
CPT/HCPCS: 74176

== ENCOUNTER → 2019-08-19 | Outpatient (CLI) | payer MEDICARE, OTHER ==
[~2019-08-19] VITALS: Ht 175 cm; Wt 86.0 kg
[~2019-08-19] MED LIST changes: +CATHETER FLUSH 10 ML SYR IV PRN; +REGADENOSON 0.4 MG/5 ML SYR (LEXISCAN) IV ONE
[2019-08-19 13:38] VITALS: BP 128/77
[2019-08-19 13:40] VITALS: BP 118/65
--- NOTE | 2019-08-20 10:14 | STRESS TEST ---
DATE OF SERVICE: 08/19/2019 RESTING AND POST REGADENOSON TECHNETIUM-99M TETROFOSMIN SPECT CT IMAGING ORDERING PHYSICIAN: Dr. Winchester. CLINICAL DIAGNOSES: Coronary artery disease and hypertension. Baseline images were carried out after injection of 10.23 mCi of technetium-99m Tetrofosmin. This was followed by 0.4 mg Regadenoson and 31.5 mCi of technetium-99 Tetrofosmin for stress imaging. The electrocardiogram showed sinus rhythm at baseline. It did not change significantly with the Regadenoson infusion. Review of images at rest and following stress does not indicate any significant perfusion defects consistent with myocardial ischemia or infarction. Gated images show normal global left ventricular systolic function with normal regional wall motion. Left ventricular ejection fraction is calculated to be 65%. Left ventricular end diastolic volume is 85 mL. TID is absent (0.96). CONCLUSIONS: 1. No evidence of any significant myocardial ischemia or infarction on this study. 2. Normal regional wall motion. 3. Normal global left ventricular systolic function with a calculated ejection fraction of 65%. Job ID: [id number] DocumentID: [id number] Dictated Date: 08/20/2019 09:05:40 Racing Secretary Date: 08/20/2019 10:13:10 Dictated By: CANDY WINCHESTER MD, MA, FACP, FACC,
== END ==
LOC: CARD 12:11
PROVIDERS: ATTEND Internal Medicine Cardiovascular Disease
DX: I25.10 Atherosclerotic heart disease of native coronary artery without angina pectoris (principal); I48.0 Paroxysmal atrial fibrillation; I10 Essential (primary) hypertension; I47.1 Supraventricular tachycardia
CPT/HCPCS: 78452; 93017

== ENCOUNTER → 2019-09-15 | Outpatient (CLI) | payer MEDICARE, OTHER ==
[~2019-09-15] MED LIST changes: -CATHETER FLUSH 10 ML SYR IV PRN; -REGADENOSON 0.4 MG/5 ML SYR (LEXISCAN) IV ONE
--- NOTE | 2019-09-15 12:06 | Diagnostic Imaging Report ---
PROCEDURE: US Thyroid. TECHNIQUE: Multiple real-time grayscale images were obtained of the thyroid in various projections. INDICATION: Thyroid nodule seen on carotid ultrasound. COMPARISON: None FINDINGS: The right thyroid lobe measures 5.6 x 1.9 x 2.0 cm in size. Background echotexture is mildly heterogeneous. Vascularity appears normal. Numerous nodules are seen throughout the right lobe. The largest are measured as follows: 1. There is a hypoechoic, circumscribed 9 x 8 x 10 mm nodule in the superior right thyroid which is wider than tall and demonstrates internal vascularity and septation. No calcifications are seen. TI-RADS 4. 2. In the upper mid right thyroid there is a isoechoic circumscribed nodule posteriorly measuring 11 x 10 x 11 mm with internal vascularity. No calcification is seen. TI-RADS 3. 3. More medial and superficial to the 2nd nodule there is a 3rd nodule measuring 9 x 6 x 6 mm, which is wider than tall and demonstrates mixed solid and cystic components with punctate hyperechoic foci which may represent small calcifications. There is internal vascularity. TI-RADS 4 4. At the inferior right thyroid there is an isoechoic circumscribed nodule measuring 10 x 7 x 8 mm in size which demonstrates internal vascularity. TI-RADS 3 5. At the inferior tip of the right thyroid there is a cystic nodule measuring 13 x 12 x 10 mm. The isthmus measures 3 mm in thickness and no large nodules are seen. The left thyroid measures 5.2 x 1.6 x 1.9 cm. Back and echotexture is mildly heterogeneous and vascularity appears normal and symmetric with the right side. Multiple nodules are seen and the largest are measured as follows: 1. Isoechoic circumscribed nodule in the superior left thyroid measures 16 x 14 x 12 mm in size. There are small internal calcifications. There is internal vascularity. TI-RADS 4 2. Irregular lobulated hypoechoic nodule with well-defined borders is seen in the mid lateral left thyroid, measuring 17 x 8 x 8 mm in size with internal foci consistent with punctate calcifications. This is wider than tall. There is internal vascularity. TI-RADS 5 3. Mostly solid circumscribed hypoechoic nodule at the medial lower left thyroid near the isthmus measuring 11 x 12 x 6 mm in size, with internal vascularity. There are small echogenic foci. TI-RADS 5 IMPRESSION: 1. Numerous nodules in the thyroid bilaterally, the largest described above. Many can be followed, although some nodules on the left do qualify for fine-needle aspiration, particularly the mid lateral left thyroid. Dictated by: Dictated on workstation # [id number]
== END ==
LOC: RAD 08:43
PROVIDERS: ATTEND Internal Medicine
DX: E04.2 Nontoxic multinodular goiter (principal)
CPT/HCPCS: 76536

== ENCOUNTER 2021-02-12 17:55 | Emergency (ER) | payer MEDICARE, OTHER ==
[~2021-02-12] VITALS: Ht 172 cm; Wt 86.0 kg
[~2021-02-12 17:55] MED LIST changes: -LISI-552 PO; -LISI10TA2 PO; +LISI10TA25 PO; +LISI20TA26 PO
[2021-02-12 18:29] LABS: BASOPHILS # (AUTO) 0.1 10^3/uL (0.0-0.1); BASOPHILS % (AUTO) 1 % (0-10); EOSINOPHILS # (AUTO) 0.2 10^3/uL (0.0-0.3); EOSINOPHILS % (AUTO) 3 % (0-10); HEMATOCRIT 45 % (40-54); HEMOGLOBIN 14.9 g/dL (13.3-17.7); LYMPHOCYTES % (AUTO) 34 % (12-44); MEAN CORPUSCULAR HEMOGLOBIN 31 pg (25-34); MEAN CORPUSCULAR HGB CONC 34 g/dL (32-36); MEAN CORPUSCULAR VOLUME 92 fL (80-99); MEAN PLATELET VOLUME 10.2 fL (9.0-12.2); MONOCYTES # (AUTO) 0.7 10^3/uL (0.0-1.0); MONOCYTES % (AUTO) 7 % (0-12); NEUTROPHILS # (AUTO) 4.9 10^3/uL (1.8-7.8); NEUTROPHILS % (AUTO) 55 % (42-75); PLATELET COUNT 197 10^3/uL (130-400); WHITE BLOOD COUNT 8.8 10^3/uL (4.3-11.0)
[2021-02-12] MEDS ORDERED: NS IV 1000 ML 1,000 ML IV SCH (18:30)
[2021-02-12] MEDS ORDERED: dilTIAZem DRIP PRE-MIX 125 ML IV SCH (18:30)
[2021-02-12 18:43] LABS: ALBUMIN 4.2 GM/DL (3.2-4.5)
[2021-02-12 18:45] LABS: CALCIUM 9.6 MG/DL (8.5-10.1); INR 1.1 (0.8-1.4); PROTHROMBIN TIME PATIENT 14.3 SEC (12.2-14.7)
[2021-02-12 18:46] LABS: TOTAL PROTEIN 7.2 GM/DL (6.4-8.2)
[2021-02-12 18:48] LABS: BILIRUBIN,TOTAL 0.6 MG/DL (0.1-1.0)
[2021-02-12 18:49] LABS: CREATININE SERUM 1.49 MG/DL (0.60-1.30)
[2021-02-12 18:52] LABS: MAGNESIUM 1.9 MG/DL (1.6-2.4)
--- NOTE | 2021-02-12 19:08 | Diagnostic Imaging Report ---
INDICATION: Chest pain. TECHNIQUE: Single view chest 6:31 PM. CORRELATION STUDY: 03/16/2017 FINDINGS: Heart size and mediastinal configuration, stable. Loop recorder device projects over the left heart border. Perhaps minimal areas of atelectasis and/or scarring about the lung bases. No infiltrate. IMPRESSION: 1. Generally stable chest demonstrates no acute abnormality. Dictated by: Dictated on workstation # [id number]
[2021-02-12] MEDS ORDERED: dilTIAZem120 MG (CARDIZEM CD) CAP PO STA (19:25)
--- NOTE | 2021-02-12 19:39 | ED Cardiac General ---
History of Present Illness General Chief Complaint: Cardiac/General Problems Stated Complaint: AFIB Nursing Triage Note: AMB TO ED REPORTS THINKS HE MAY BE IN A FIB. MONITOR SHOWS AFIB WITH RATE. 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 Source: patient Exam Limitations: no limitations History of Present Illness Date Seen by Provider: Feb 12, 2021 Time Seen by Provider: 18:01 Initial Comments This 75-year-old gentleman with history of paroxysmal atrial fibrillation presents to the emergency room with A. fib RVR. He is anticoagulated on Eliquis. He has previously undergone ablation and sees Dr. Aguilera at [facility] for electrophysiology. Dr. Caldera is his primary care provider and Dr. Winchester is his landscape artist. He is not on any rate controlling medications at this time but states he has had pauses and bradycardia on his loop recorder which has been concerning in regard to rate controlling medications. He does have an appointment coming up soon at . He reports a stress test will be done at that time. He denies chest pain but does have palpitations and tachycardia. Symptoms started about 1 hour ago. Allergies and Home Medications Allergies Coded Allergies: Sulfa (Sulfonamide Antibiotics) (Unverified Allergy, Unknown, 10/13/14) Home Medications Apixaban 5 Mg Tablet, 5 MG PO BID Prescribed by: ELLI PATEL on 03/16/17 1029 Aspirin 81 Mg Tabec, 81 MG PO DAILY, (Reported) Atorvastatin 20 Mg Tablet, 20 MG PO DAILY Prescribed by: CANDY WINCHESTER on 10/13/14 1315 Esomeprazole Mag Trihydrate 20 Mg Capsule.dr, 20 MG PO HS, (Reported) Lisinopril 10 Mg Tablet, 10 MG PO DAILY, (Reported) TAKES IN ADDITION TO 20MG TO EQUAL 30MG Lisinopril 20 Mg Tablet, 20 MG PO DAILY, (Reported) TAKES IN ADDITION TO 10MG TAB TO EQUAL 30MG Metoprolol Succinate 50 Mg Tab.er.24h, 50 MG PO DAILY Prescribed by: ELLI PATEL on 03/16/17 1029 Patient Home Medication List Home Medication List Reviewed: Yes Review of Systems Review of Systems Constitutional: no symptoms reported EENTM: No Symptoms Reported Respiratory: No Symptoms Reported Cardiovascular: See HPI Gastrointestinal: No Symptoms Reported Genitourinary: No Symptoms Reported Musculoskeletal: no symptoms reported Skin: no symptoms reported Psychiatric/Neurological: No Symptoms Reported Endocrine: No Symptoms Reported Hematologic/Lymphatic: See HPI Past [id number]-[id number]-[id number] Hx Patient Social History Tobacco Use?: No Substance use?: No Alcohol Use?: No Immunizations Up To Date First/Initial COVID19 Vaccinat: JUL Second COVID19 Vaccination Benjamin: AUGUST Seasonal Allergies Seasonal Allergies: No Past Medical History Surgeries: Yes Cardiac (Ablation, loop recorder), Tonsillectomy Respiratory: No Cardiac: Yes (CARDIAC ABLATION, SVT) Atrial Fibrillation (paroxysmal), Hypertension Neurological: No Reproductive Disorders: No Genitourinary: No Gastrointestinal: Yes Gastroesophageal Reflux, Diverticulosis Musculoskeletal: No Endocrine: No Cancer: No Psychosocial: No Integumentary: No Blood Disorders: No Physical Exam Vital Signs Vital Signs - First Documented 02/12/21 02/12/21 18:08 20:04 Temp 36.0 Pulse 140 Resp 22 B/P (MAP) 112/94 (100) Pulse Ox 98 O2 Delivery Room Air Capillary Refill : Height, Weight, BMI Height: 5'9.00" Weight: 202lbs. 0.0oz. [id number]; 29.00 BMI Method:Stated General Appearance: No Apparent Distress, WD/WN HEENT: PERRL/EOMI, Normal ENT Inspection Neck: Normal Inspection Respiratory: Lungs Clear, Normal Breath Sounds, No Accessory Muscle Use Cardiovascular: No Edema, No Murmur, Irregularly Irregular, Tachycardia Gastrointestinal: No Distended Extremity: Normal Inspection, No Pedal Edema Neurologic/Psychiatric: Alert, Oriented x3, No Motor/Sensory Deficits, Normal Mood/Affect Skin: Normal Color, Warm/Dry Progress/Results/Core Measures Results/Orders Lab Results Laboratory Tests Test 02/12/21 17:21 Range/Units White Blood Count 8.8 4.3-11.0 10^3/uL Red Blood Count 4.86 4.30-5.52 10^6/uL Hemoglobin 14.9 13.3-17.7 g/dL Hematocrit 45 40-54 % Mean Corpuscular Volume 92 80-99 fL Mean Corpuscular Hemoglobin 31 25-34 pg Mean Corpuscular Hemoglobin Concent 34 32-36 g/dL Red Cell Distribution Width 12.8 10.0-14.5 % Platelet Count 197 130-400 10^3/uL Mean Platelet Volume 10.2 9.0-12.2 fL Immature Granulocyte % (Auto) 0 % Neutrophils (%) (Auto) 55 42-75 % Lymphocytes (%) (Auto) 34 12-44 % Monocytes (%) (Auto) 7 0-12 % Eosinophils (%) (Auto) 3 0-10 % Basophils (%) (Auto) 1 0-10 % Neutrophils # (Auto) 4.9 1.8-7.8 10^3/uL Lymphocytes # (Auto) 3.0 1.0-4.0 10^3/uL Monocytes # (Auto) 0.7 0.0-1.0 10^3/uL Eosinophils # (Auto) 0.2 0.0-0.3 10^3/uL Basophils # (Auto) 0.1 0.0-0.1 10^3/uL Immature Granulocyte # (Auto) 0.0 0.0-0.1 10^3/uL Prothrombin Time 14.3 12.2-14.7 SEC INR Comment 1.1 0.8-1.4 Activated Partial Thromboplast Time 33 24-35 SEC Sodium Level 143 135-145 MMOL/L Potassium Level 4.0 3.6-5.0 MMOL/L Chloride Level 113 H 98-107 MMOL/L Carbon Dioxide Level 19 L 21-32 MMOL/L Anion Gap 11 5-14 MMOL/L Blood Urea Nitrogen 24 H 7-18 MG/DL Creatinine 1.49 H 0.60-1.30 MG/DL Estimat Glomerular Filtration Rate 46 BUN/Creatinine Ratio 16 Glucose Level 92 70-105 MG/DL Calcium Level 9.6 8.5-10.1 MG/DL Corrected Calcium 9.4 8.5-10.1 MG/DL Magnesium Level 1.9 1.6-2.4 MG/DL Total Bilirubin 0.6 0.1-1.0 MG/DL Aspartate Amino Transf (AST/SGOT) 20 5-34 U/L Alanine Aminotransferase (ALT/SGPT) 23 0-55 U/L Alkaline Phosphatase 68 40-136 U/L Myoglobin 115.1 H 10.0-92.0 NG/ML Troponin I < 0.028 <0.028 NG/ML Total Protein 7.2 6.4-8.2 GM/DL Albumin 4.2 3.2-4.5 GM/DL TSH [place] Testing 0.80 0.35-4.94 UIU/ML My Orders Orders - HITESH FRANCIS MD Ekg Tracing (02/12/21 18:01) Monitor-Rhythm Ecg Trace Only (02/12/21 18:01) Cbc With Automated Diff (02/12/21 18:17) Magnesium (02/12/21 18:17) Chest 1 View, Ap/Pa Only (02/12/21 18:17) Comprehensive Metabolic Panel (02/12/21 18:17) Myoglobin Serum (02/12/21 18:17) Protime With Inr (02/12/21 18:17) Partial Thromboplastin Time (02/12/21 18:17) O2 (02/12/21 18:17) Ed Iv/Invasive Line Start (02/12/21 18:17) Troponin I (02/12/21 18:17) Ns Iv 1000 Ml (Sodium Chloride 0.9%) (02/12/21 18:30) Thyroid Analyzer (02/12/21 18:17) Diltiazem Injection (Cardizem Injection) (02/12/21 18:30) Diltiazem Drip Pre-Mix (Cardizem Drip Pr (02/12/21 18:30) Ekg Tracing (02/12/21 19:14) Diltiazem Cd 24 Hr Capsule (Cardizem Cd (02/12/21 19:25) Medications Given in ED Vital Signs/I&O 02/12/21 02/12/21 18:08 20:04 Temp 36.0 Pulse 140 93 Resp 22 20 B/P (MAP) 112/94 (100) 149/77 Pulse Ox 98 96 O2 Delivery Room Air Blood Pressure Mean: 100 Progress Progress Note #1: Time: 19:36 Progress Note Patient received a liter of IV fluids. Labs and EKG were obtained. Labs were relatively unremarkable except a slight bump in creatinine. Cardizem bolus of 10 mg was given followed by a drip at 10 mg/h. This converted his heart rate to a sinus rhythm with a rate in the 60s. He was experiencing intermittent bigeminy. I discussed the situation with Dr. Mendoza. Because patient describes history of pauses on his loop recorder at night of up to 4 seconds as well as a baseline heart rate in the 40s and 50s, we have elected to not continue Cardizem on discharge. We are turning off the Cardizem drip and will monitor for about 15 minutes. If he maintains an acceptable heart rate, he may return home and follow-up with Dr. Winchester next week. Progress Note #2: Time: 20:15 Progress Note Cardizem was discontinued. After 20 minutes he was still in sinus rhythm. He was having intermittent bigeminy but otherwise stable. Discharge instructions were reviewed and patient discharged outpatient follow-up. EKG #1: EKG Time: 18:14 Rate: 127 Rhythm: A Fib/Flutter Comment Atrial fibrillation with RVR. No ST elevation or depression. No axis deviation. No other abnormal intervals. EKG #2: EKG Time: 19:15 Rate: 62 Rhythm: Normal Sinus Intervals: Normal ECG Impression: Normal Comment Normal sinus rhythm with no ST elevation or depression. No abnormal intervals or axis deviation. Resolution of A. fib with RVR. Departure Impression Primary Impression: Paroxysmal atrial fibrillation with rapid ventricular response Additional Impression: Bigeminy Disposition: 01 HOME, SELF-CARE Condition: Improved Departure-Patient Inst. Decision time for Depature: 19:50 Referrals: BEULAH CALDERA MD (PCP/Family) Primary Care Physician Patient Instructions: Atrial Fibrillation Add. Discharge Instructions: Continue your medications as previously prescribed. Return to the emergency room if you have recurrent A. fib accompanied by symptoms such as shortness of breath, lightheadedness, chest pain, etc. Also return to the emergency room if you have A. fib with rapid heart rate that does not resolve in an hour or two. Call with questions or concerns. Follow-up with Dr. Winchester next week. Call his office early on Sunday morning to schedule the appointment. Return to the emergency room if you have any other worsening of condition. All discharge instructions reviewed with patient and/or family. Voiced understanding. Copy Copies To 1: CANDY WINCHESTER MD [facility]S Copies To 2: BEULAH CALDERA MD, JOSHUA T MD Feb 12, 2021 19:39
[2021-02-12 20:04] VITALS: BP 149/77
== END 2021-02-12 20:04 | disposition home or self-care (01) ==
LOC: EDUNIT# 17:55 → ER 17:57
DX: I48.0 Paroxysmal atrial fibrillation (principal); R00.8 Other abnormalities of heart beat; I10 Essential (primary) hypertension; K21.9 Gastro-esophageal reflux disease without esophagitis; Z79.899 Other long term (current) drug therapy; Z79.82 Long term (current) use of aspirin; Z79.01 Long term (current) use of anticoagulants
CPT/HCPCS: 36415; 71045; 80053; 83735; 83874; 84443; 84484; 85025; 85610; 85730; 93005; 93041